=== PATIENT | female | born 1970 | race Caucasian/White ===

== ENCOUNTER → 2022-03-07 | Outpatient (CLI) | payer BC, OTHER ==
[~2022-03-07] MED LIST: BENZ-36 PO; BENZ100C18 PO; BUDE0.5A INH; CEFD300C3 PO; DOXY100C2 PO; HYDR473S61 PO; IPRA3AMP31 INH; LEVO250S3 PO; POTA-160 PO; POTA-169 PO; PRD10T PO; RT-ALBUTEROL SULF 2.5 MG/3 ML PRE-MIX VIAL INH ONE
--- NOTE | 2022-03-07 14:52 | Diagnostic Imaging Report ---
INDICATION: Chronic cough. EXAMINATION: PA and lateral chest. FINDINGS: The heart size and pulmonary vascularity are normal. The lungs are clear. There are no effusions or pneumothoraces. IMPRESSION: No acute abnormalities in the chest. Dictated by: Dictated on workstation # [id number]
== END ==
LOC: RT 14:15
PROVIDERS: ATTEND Internal Medicine Critical Care Medicine
DX: R05.8 Other specified cough (principal)
CPT/HCPCS: 71046; 94060; 94726; 94729